=== PATIENT | male | born 1940 | race Caucasian/White ===

== ENCOUNTER 2017-06-02 10:03 | Day surgery (SDC) | payer OTHER ==
[2017-05-29 09:33] LABS: BASOPHILS % (AUTO) 0.5 % (0-1); EOSINOPHILS # (AUTO) 0.3 X10'3 (0-0.9); EOSINOPHILS % (AUTO) 4.1 % (0-6); HEMATOCRIT 40.4 % (42.0-52.0); HEMOGLOBIN 13.5 g/dl (14.0-17.9); LYMPHOCYTES # (AUTO) 1.5 X10'3 (1.1-4.8); MEAN CORPUSCULAR HEMOGLOBIN 31.4 PG (27.0-31.0); MEAN CORPUSCULAR HGB CONC 33.4 % (33.0-36.5); MEAN CORPUSCULAR VOLUME 94.1 FL (78-98); MEAN PLATELET VOLUME 10.2 FL (7.4-10.4); MONOCYTES # (AUTO) 0.7 X10'3 (0-0.9); MONOCYTES % (AUTO) 10.1 % (2-12); NEUTROPHILS # (AUTO) 4.7 X10'3 (1.8-7.7); NEUTROPHILS % (AUTO) 64.3 % (42-75); PLATELET COUNT 134 X10'3 (140-440); RED BLOOD COUNT 4.29 X10'6 (4.70-6.10); RED CELL DISTRIBUTION WIDTH 13.8 % (11.5-14.5); WHITE BLOOD COUNT 7.3 X10'3 (4.5-11.0)
[2017-05-29 09:44] LABS: INR 1.1 INR; PARTIAL THROMBOPLASTIN TIME 32 SECONDS (22-32); PROTHROMBIN TIME 11.4 SECONDS (9.0-12.0)
[2017-05-29 09:59] LABS: ALBUMIN 3.6 G/DL (3.4-5.0); ANION GAP 3 (8-16); BLOOD UREA NITROGEN 30 MG/DL (7-18); CALCIUM 9.1 MG/DL (8.5-10.1); CHLORIDE 105 MMOL/L (99-107); CHOL/HDL RATIO 3.3 (0.00-4.99); CHOLESTEROL 127 MG/DL (0-200); CREATININE 1.76 MG/DL (0.60-1.10); GLUCOSE 135 MG/DL (70-104); HDL CHOLESTEROL 39 MG/DL (35-60); LDL CHOLESTEROL 73 MG/DL (50-100); POTASSIUM 4.7 MMOL/L (3.5-5.1); SODIUM 140 MMOL/L (135-145); TRIGLYCERIDES 178 MG/DL (20-135); eGFR 38 ML/MIN
[~2017-06-02] VITALS: Ht 180.3 cm; Wt 112.9 kg
[2017-06-02] VITALS (12 sets, daily range): BP systolic 120–142; BP diastolic 54–88
[~2017-06-02 10:03] MED LIST: ACET650T2 PO; AMIO200T57 PO; ATOR20TA PO; DONE5TAB3 PO; DULO-31 PO; FLO0.4C PO; HYDR-3972 PO; MEMA5TAB PO; NITR0.4T48 SL; OMEG1CAP PO; PREG50CA PO; RANO500T3 PO; SITA50TA7 PO
[2017-06-02] MEDS ORDERED: LIDOcaine 1% (10mg/ml) 2ml vial ONE (10:15)
[2017-06-02] MEDS ORDERED: ASPI81TA52 PO (10:23)
[2017-06-02] MEDS ORDERED: LISI-600 PO (10:23)
[2017-06-02] MEDS ORDERED: MULT-933 PO (10:24)
[2017-06-02] MEDS ORDERED: APIX5TAB3 PO (10:24)
[2017-06-02] MEDS ORDERED: diphenhydrAMINE 25mg capsule PO PRN (10:25)
[2017-06-02] MEDS ORDERED: METO50TA17 PO (10:25)
[2017-06-02] MEDS ORDERED: LORazepam 0.5 MG tablet PO PRN (10:25)
[2017-06-02] MEDS ORDERED: FISH12002 PO (11:14)
[2017-06-02] MEDS ORDERED: BUPR300T54 PO (11:14)
[2017-06-02] MEDS: normal saline 1000ml 1,000 ML IV SCH ×2 (11:38→19:50)
[2017-06-02] MEDS ORDERED: iohexol 350MG/ML 100ml bottle IV ONE (16:40)
[2017-06-02] MEDS ORDERED: iohexol 350 MG/ML 50ML vial IV ONE (17:14)
[2017-06-02] MEDS ORDERED: ondansetron/PF 4mg/2ml inj IV PRN (18:05)
[2017-06-02] MEDS ORDERED: normal saline 1000ml 1,000 ML IV SCH (18:05)
[2017-06-02] MEDS ORDERED: HYDROcodone/acetaminophen 5mg/325mg tablet PO PRN (18:05)
[2017-06-02] MEDS ORDERED: OXAZEpam 15mg capsule PO PRN (18:10)
[2017-06-02] MEDS ORDERED: HYDROcodone/acetaminophen 10/325mg tab PO PRN (18:10)
[2017-06-02] MEDS ORDERED: nitroGLYCERIN 0.4mg SUBLingual tab SL PRN (18:10)
[2017-06-02] MEDS ORDERED: proCHLORperazine 10 MG/2 ml inj IV PRN (18:10)
[2017-06-02] MEDS ORDERED: apixaban 5mg tablet PO SCH (20:00)
[2017-06-02] MEDS ORDERED: buPROPion SR 150mg tablet PO SCH (20:00)
[2017-06-02] MEDS ORDERED: OMEGA-3/DHA/EPA/FISH OIL 1 EACH CAPSULE.DR PO SCH (20:00)
[2017-06-02] MEDS ORDERED: metoprolol tartrate 50mg tablet PO SCH (20:00)
[2017-06-02] MEDS ORDERED: memantine 5mg tablet PO SCH (20:00)
[2017-06-03] MEDS ORDERED: multivitamins, therapeutics tablet PO SCH (08:00)
[2017-06-03] MEDS ORDERED: atorvastatin 20mg tablet PO SCH (08:00)
[2017-06-03] MEDS ORDERED: lisinopril 20mg tablet PO SCH (08:00)
[2017-06-03] MEDS ORDERED: aspirin 81mg tablet.DR PO SCH (08:00)
[2017-06-03] MEDS ORDERED: donepezil 5mg tablet PO SCH (08:00)
[2017-06-03] MEDS ORDERED: duloxetine 30mg CAPSULE.DR PO SCH (08:00)
== END 2017-06-02 23:10 | disposition home or self-care (01) ==
LOC: SSTAY O 10:03 → PCU 3S 18:01 → SSTAY O 23:10
PROVIDERS: ATTEND Internal Medicine Interventional Cardiology
DX: I25.10 Atherosclerotic heart disease of native coronary artery without angina pectoris (principal); Z95.1 Presence of aortocoronary bypass graft; I13.0 Hypertensive heart and chronic kidney disease with heart failure and stage 1 through stage 4 chronic kidney disease, or unspecified chronic kidney disease; N18.3 Chronic kidney disease, stage 3 (moderate); I50.9 Heart failure, unspecified; I48.91 Unspecified atrial fibrillation; I42.9 Cardiomyopathy, unspecified
CPT/HCPCS: 36415; 80048; 80061; 82948; 85025; 85610; 85730; 93005; 93459; 93567; A6257; C1769; J1644; J3490; J7030; Q9967; A4620

== ENCOUNTER 2019-04-19 20:17 | Emergency (ER) | payer MEDICARE, BC ==
[~2019-04-19] VITALS: Ht 180.3 cm; Wt 111.4 kg
[~2019-04-19 20:17] MED LIST changes: -ACET650T2 PO; -AMIO200T57 PO; +APIX5TAB3 PO; +ASPI81TA52 PO; +BUPR300T54 PO; -FLO0.4C PO; -HYDR-3972 PO; +LISI-600 PO; +METO50TA17 PO; +MULT-933 PO; -OMEG1CAP PO; -PREG50CA PO; -RANO500T3 PO
--- NOTE | 2019-04-19 20:45 | NUR ---
Poison control contacted. They recommend symptomatic treatment for GI upset and headache. That state the amount the patient consumed will not likeley cause any harm to the patient. He recommends EKG if the patient is having any cardiac symptioms. He states the patient does not need observation and can be safely discharged with instructions to return for worsening symptoms. Spoke to Jesus from poison control.
[2019-04-19 21:55] VITALS: BP 155/65
== END 2019-04-19 21:57 | disposition home or self-care (01) ==
LOC: ER 20:19
DX: R10.13 Epigastric pain (principal); R51 Headache; T49.3X5A Adverse effect of emollients, demulcents and protectants, initial encounter; I48.91 Unspecified atrial fibrillation; I25.10 Atherosclerotic heart disease of native coronary artery without angina pectoris; I10 Essential (primary) hypertension; E11.9 Type 2 diabetes mellitus without complications; F32.9 Major depressive disorder, single episode, unspecified; Z79.899 Other long term (current) drug therapy; Z79.82 Long term (current) use of aspirin; Z95.1 Presence of aortocoronary bypass graft; Y92.89 Other specified places as the place of occurrence of the external cause
CPT/HCPCS: 93005; 99283

== ENCOUNTER 2022-05-13 09:47 | Emergency (ER) | payer MEDICARE, BC ==
[~2022-05-13] VITALS: Ht 180.3 cm; Wt 110.0 kg
[~2022-05-13 09:47] MED LIST changes: -ASPI81TA52 PO; -ATOR20TA PO; -BUPR300T54 PO; -DONE5TAB3 PO; -DULO-31 PO; -LISI-600 PO; -MEMA5TAB PO; -MULT-933 PO; +PREG100C55 PO; +SITA100T15 PO; -SITA50TA7 PO
[2022-05-13 10:15] VITALS: BP 114/54
[2022-05-13] MEDS ORDERED: PRED20TA PO (13:07)
[2022-05-13] MEDS ORDERED: ALBU6.7H14 INH (13:07)
[2022-05-13] MEDS ORDERED: AMOX-117 PO (13:07)
== END 2022-05-13 13:23 | disposition home or self-care (01) ==
LOC: ER 09:48
DX: J40 Bronchitis, not specified as acute or chronic (principal); Z20.822 Contact with and (suspected) exposure to COVID-19; I10 Essential (primary) hypertension; E11.9 Type 2 diabetes mellitus without complications
CPT/HCPCS: 71045; 87635; 99284; C9803

== ENCOUNTER 2022-05-17 09:12 | Emergency (ER) | payer MEDICARE, BC ==
[~2022-05-17] VITALS: Ht 185.4 cm; Wt 112.3 kg
[~2022-05-17 09:12] MED LIST changes: +ALBU6.7H14 INH; +AMOX-117 PO; +PRED20TA PO
[2022-05-17 09:29] VITALS: BP 93/53
[2022-05-17 09:35] LABS: BASOPHILS % (AUTO) 0.2 % (0-1); EOSINOPHILS % (AUTO) 0.1 % (0-6); HEMATOCRIT 39.3 % (42.0-52.0); HEMOGLOBIN 13.1 g/dl (14.0-17.9); LYMPHOCYTES # (AUTO) 0.9 X10'3 (1.1-4.8); LYMPHOCYTES % (AUTO) 16.4 % (21-51); MEAN CORPUSCULAR HEMOGLOBIN 30.5 PG (27.0-31.0); MEAN CORPUSCULAR HGB CONC 33.2 g/dL (33.0-36.5); MEAN CORPUSCULAR VOLUME 91.9 FL (78-98); MONOCYTES # (AUTO) 0.4 X10'3 (0-0.9); NEUTROPHILS # (AUTO) 3.9 X10'3 (1.8-7.7); NEUTROPHILS % (AUTO) 75.3 % (42-75); PLATELET COUNT 130 X10'3 (140-440); RED BLOOD COUNT 4.28 X10'6 (4.70-6.10); RED CELL DISTRIBUTION WIDTH 13.9 % (11.5-14.5); WHITE BLOOD COUNT 5.2 X10'3 (4.5-11.0)
[2022-05-17 10:01] LABS: ALANINE AMINOTRANSFERASE 61 U/L (12-78); ALBUMIN 3.2 G/DL (3.4-5.0); ALKALINE PHOSPHATASE 65 IU/L (46-116); ANION GAP 8 (8-16); ASPARTATE AMINO TRANSFERASE 33 U/L (10-37); BILIRUBIN,TOTAL 0.8 MG/DL (0.1-1.0); BLOOD UREA NITROGEN 18 MG/DL (7-18); BUN/CREATININE RATIO 11.5 (5.4-32.0); CALCIUM 8.6 MG/DL (8.5-10.1); CHLORIDE 104 MMOL/L (99-107); CREATININE 1.56 MG/DL (0.60-1.10); GLUCOSE 157 MG/DL (70-104); POTASSIUM 4.4 MMOL/L (3.5-5.1); SODIUM 139 MMOL/L (135-145); TOTAL CARBON DIOXIDE 26.7 MMOL/L (24-32); TOTAL PROTEIN 6.5 G/DL (6.4-8.2); eGFR 43 ML/MIN
[2022-05-17] MEDS ORDERED: acetaminophen 325mg tablet PO ONE (10:35)
[2022-05-17 15:02] LABS: CLARITY,URINE SLIGHTLY CLOUDY (Clear); COLOR,URINE YELLOW (Yellow); GLUCOSE, URINE NEGATIVE (Neg); KETONES,URINE NEGATIVE (Neg); LEUKOCYTE ESTERASE ,URINE NEGATIVE (Neg); NITRITES, URINE NEGATIVE (Neg); OCCULT BLOOD,URINE NEGATIVE (Neg); PH,URINE 6.5 (4.8-8.0); PROTEIN,URINE TRACE mg/dl (Neg); UROBILINOGEN,URINE 0.2 E.U/dL (0.2-1.0)
[2022-05-17 15:06] LABS: UA COLLECTION TYPE CLN CATCH MIDSTREAM
[2022-05-17 15:25] LABS: SQUAMOUS EPITHELIAL CELL,UR FEW /LPF (FEW)
[2022-05-17 15:26] LABS: MUCUS STRANDS FEW /LPF (Neg)
[2022-05-17 15:27] LABS: HYALINE CASTS 0-3 /LPF (NEGATIVE)
[2022-05-17 15:28] LABS: BACTERIA,URINE FEW /HPF (Neg); RBC,URINE 0-2 /HPF (0-2); WBC,URINE 0-4 /HPF (0-4)
== END 2022-05-17 16:00 | disposition home or self-care (01) ==
LOC: ER 09:13
DX: S00.81XA Abrasion of other part of head, initial encounter (principal); J40 Bronchitis, not specified as acute or chronic; I11.9 Hypertensive heart disease without heart failure; E11.9 Type 2 diabetes mellitus without complications; F32.A Depression, unspecified; Z79.1 Long term (current) use of non-steroidal anti-inflammatories (NSAID); W18.39XA Other fall on same level, initial encounter; Y93.89 Activity, other specified; Y92.89 Other specified places as the place of occurrence of the external cause; Y99.8 Other external cause status; Z79.899 Other long term (current) drug therapy
CPT/HCPCS: 36415; 70450; 72125; 80053; 81001; 83735; 83880; 84484; 85025; 93005; 99285

== ENCOUNTER 2022-06-17 09:56 | Emergency (ER) | payer BC, MEDICARE, OTHER ==
[~2022-06-17] VITALS: Ht 180.3 cm; Wt 109.0 kg
[~2022-06-17 09:56] MED LIST changes: -AMOX-117 PO; -PRED20TA PO
[2022-06-17 10:53] LABS: BASOPHILS % (AUTO) 0.6 % (0-1); EOSINOPHILS # (AUTO) 0.2 X10'3 (0-0.9); EOSINOPHILS % (AUTO) 1.8 % (0-6); HEMATOCRIT 38.6 % (42.0-52.0); HEMOGLOBIN 12.5 g/dl (14.0-17.9); LYMPHOCYTES % (AUTO) 11.3 % (21-51); MEAN CORPUSCULAR HEMOGLOBIN 29.8 PG (27.0-31.0); MEAN CORPUSCULAR HGB CONC 32.4 g/dL (33.0-36.5); MEAN CORPUSCULAR VOLUME 92.1 FL (78-98); MONOCYTES # (AUTO) 1.3 X10'3 (0-0.9); MONOCYTES % (AUTO) 14.2 % (2-12); NEUTROPHILS # (AUTO) 6.4 X10'3 (1.8-7.7); NEUTROPHILS % (AUTO) 72.1 % (42-75); PLATELET COUNT 153 X10'3 (140-440); RED BLOOD COUNT 4.19 X10'6 (4.70-6.10); RED CELL DISTRIBUTION WIDTH 14.1 % (11.5-14.5); WHITE BLOOD COUNT 8.8 X10'3 (4.5-11.0)
[2022-06-17 11:05] LABS: ALANINE AMINOTRANSFERASE 26 U/L (12-78); ALBUMIN 3.3 G/DL (3.4-5.0); ALBUMIN/GLOBULIN RATIO 0.9 (1.1-1.5); ALKALINE PHOSPHATASE 69 IU/L (46-116); ANION GAP 4 (8-16); ASPARTATE AMINO TRANSFERASE 14 U/L (10-37); BILIRUBIN,TOTAL 0.9 MG/DL (0.1-1.0); BLOOD UREA NITROGEN 16 MG/DL (7-18); CALCIUM 8.8 MG/DL (8.5-10.1); CHLORIDE 103 MMOL/L (99-107); CREATININE 1.46 MG/DL (0.60-1.10); GLUCOSE 146 MG/DL (70-104); POTASSIUM 4.3 MMOL/L (3.5-5.1); SODIUM 136 MMOL/L (135-145); TOTAL CARBON DIOXIDE 28.9 MMOL/L (24-32); TOTAL PROTEIN 6.8 G/DL (6.4-8.2); eGFR 46 ML/MIN
[2022-06-17 13:14] VITALS: BP 149/68
[2022-06-17] MEDS ORDERED: ALBU6.7H14 INH (13:22)
[2022-06-17] MEDS ORDERED: PRED20TA PO (13:22)
[2022-06-17] MEDS ORDERED: BENZ-38 PO (13:22)
== END 2022-06-17 13:16 | disposition home or self-care (01) ==
LOC: ER 09:57
DX: R91.8 Other nonspecific abnormal finding of lung field (principal); R06.02 Shortness of breath; R05.3 Chronic cough; R53.83 Other fatigue; I48.91 Unspecified atrial fibrillation; I25.10 Atherosclerotic heart disease of native coronary artery without angina pectoris; I10 Essential (primary) hypertension; E11.9 Type 2 diabetes mellitus without complications; F32.A Depression, unspecified; Z85.9 Personal history of malignant neoplasm, unspecified; Z98.890 Other specified postprocedural states; Z79.899 Other long term (current) drug therapy
CPT/HCPCS: 36415; 71045; 71250; 80053; 83880; 84484; 85025; 93005; 99285

== ENCOUNTER 2022-07-11 08:03 | Day surgery (SDC) | payer MEDICARE, OTHER ==
[~2022-07-11] VITALS: Ht 180.3 cm; Wt 110.4 kg
[2022-07-11] VITALS (14 sets, daily range): BP systolic 116–143; BP diastolic 39–94
[~2022-07-11 08:03] MED LIST changes: +BENZ-38 PO
[2022-07-11] MEDS ORDERED: normal saline 1000ml 1,000 ML IV PRN (08:25)
[2022-07-11 08:45] LABS: BASOPHILS # (AUTO) 0.1 X10'3 (0-0.2); BASOPHILS % (AUTO) 0.8 % (0-1); EOSINOPHILS # (AUTO) 0.2 X10'3 (0-0.9); EOSINOPHILS % (AUTO) 3.4 % (0-6); HEMATOCRIT 39.2 % (42.0-52.0); HEMOGLOBIN 13.1 g/dl (14.0-17.9); LYMPHOCYTES # (AUTO) 1.2 X10'3 (1.1-4.8); LYMPHOCYTES % (AUTO) 17.4 % (21-51); MEAN CORPUSCULAR HEMOGLOBIN 30.6 PG (27.0-31.0); MEAN CORPUSCULAR HGB CONC 33.4 g/dL (33.0-36.5); MEAN CORPUSCULAR VOLUME 91.5 FL (78-98); MEAN PLATELET VOLUME 9.2 FL (7.4-10.4); MONOCYTES # (AUTO) 0.6 X10'3 (0-0.9); MONOCYTES % (AUTO) 9.1 % (2-12); NEUTROPHILS # (AUTO) 4.7 X10'3 (1.8-7.7); NEUTROPHILS % (AUTO) 69.3 % (42-75); PLATELET COUNT 204 X10'3 (140-440); RED BLOOD COUNT 4.28 X10'6 (4.70-6.10); RED CELL DISTRIBUTION WIDTH 14.1 % (11.5-14.5); WHITE BLOOD COUNT 6.8 X10'3 (4.5-11.0)
[2022-07-11] MEDS ORDERED: ATOR40TA71 PO (09:00)
[2022-07-11] MEDS ORDERED: METF-436 PO (09:00)
[2022-07-11] MEDS ORDERED: METO50TA17 PO (09:00)
[2022-07-11] MEDS ORDERED: ICOS1CAP2 PO (09:00)
[2022-07-11] MEDS ORDERED: GLIP5TAB13 PO (09:00)
[2022-07-11] MEDS ORDERED: midazolam 1 mg/ML 2ml injection ONE (09:50)
[2022-07-11] MEDS ORDERED: LIDOcaine 1% (10mg/ml) 2ml vial ONE (09:50)
[2022-07-11] MEDS ORDERED: fentaNYL/PF 50MCG/1 ML 2ML syringe ONE (09:51)
--- NOTE | 2022-07-11 14:05 | NUR ---
CXR complete. Called Dr. Prabhakar to read the CXR to clear the patient to go home.
--- NOTE | 2022-07-11 15:00 | NUR ---
Dr. Prabhakar called. CXR looks good, patient may go home.
== END 2022-07-11 15:05 | disposition home or self-care (01) ==
LOC: SSTAY O 08:03
PROVIDERS: ATTEND Radiology Vascular & Interventional Radiology
DX: R91.1 Solitary pulmonary nodule (principal); I48.91 Unspecified atrial fibrillation; I25.10 Atherosclerotic heart disease of native coronary artery without angina pectoris; I10 Essential (primary) hypertension; N40.0 Benign prostatic hyperplasia without lower urinary tract symptoms; E11.9 Type 2 diabetes mellitus without complications; F32.A Depression, unspecified; Z79.01 Long term (current) use of anticoagulants; Z85.528 Personal history of other malignant neoplasm of kidney; Z96.652 Presence of left artificial knee joint; Z96.611 Presence of right artificial shoulder joint; Z95.1 Presence of aortocoronary bypass graft; Z79.84 Long term (current) use of oral hypoglycemic drugs; Z79.899 Other long term (current) drug therapy; Z82.3 Family history of stroke; Z83.3 Family history of diabetes mellitus
CPT/HCPCS: 32408; 36415; 71045; 82948; 85025; 85610; 88305; 88341; 88342; 88360; J2250; J3010; J3490; J7030; 77012; 88173; A4421; A4615; A6258; C1769

== ENCOUNTER 2023-02-20 17:36 | Emergency (ER) | payer OTHER ==
[~2023-02-20] VITALS: Ht 180.3 cm; Wt 105.0 kg
[~2023-02-20 17:36] MED LIST changes: -ALBU6.7H14 INH; +ATOR40TA71 PO; -BENZ-38 PO; +GLIP5TAB13 PO; +ICOS1CAP2 PO; +METF-436 PO; -NITR0.4T48 SL; -PREG100C55 PO; +PREG100C56 PO
[2023-02-20] MEDS ORDERED: guaiFENesin 200 MG/10 ML oral syrup UD cup PO PRN (18:40)
[2023-02-20] MEDS ORDERED: ipratropium/albuterol 3ml nebule NEB PRN (18:40)
[2023-02-20] MEDS ORDERED: benzonatate 100mg capsule PO ONE (18:40)
[2023-02-20] MEDS ORDERED: DEXT15SY PO (18:59)
[2023-02-20] MEDS ORDERED: BENZ-38 PO (18:59)
[2023-02-20 19:35] VITALS: PULSE 65; RESP 18; O2SAT 95
[2023-02-20 19:43] VITALS: PULSE 65; RESP 18; O2SAT 99
--- NOTE | 2023-02-20 20:00 | NUR ---
REVIEWED ASSESSMENT BY [facility]X CONSULTANT AND AGREE WITH ASSESSMENT.
[2023-02-20 20:11] VITALS: BP 133/65; PULSE 66; RESP 16; TEMP 98.7; O2SAT 93
== END 2023-02-20 21:48 | disposition home or self-care (01) ==
LOC: ER 17:36
DX: R05.9 Cough, unspecified (principal); Z20.822 Contact with and (suspected) exposure to COVID-19; I10 Essential (primary) hypertension; E11.9 Type 2 diabetes mellitus without complications; Z79.899 Other long term (current) drug therapy
CPT/HCPCS: 36415; 71045; 87502; 87503; 87811; 94640; 94760; 99284

== ENCOUNTER 2023-02-28 05:19 | Day surgery (SDC) | payer MEDICARE, OTHER ==
[2023-02-26 11:42] LABS: BASOPHILS # (AUTO) 0.1 X10'3 (0-0.2); BASOPHILS % (AUTO) 1.1 % (0-1); EOSINOPHILS # (AUTO) 0.2 X10'3 (0-0.9); EOSINOPHILS % (AUTO) 3.2 % (0-6); LYMPHOCYTES # (AUTO) 1.1 X10'3 (1.1-4.8); LYMPHOCYTES % (AUTO) 15.1 % (21-51); MEAN CORPUSCULAR HEMOGLOBIN 30.8 PG (27.0-31.0); MEAN CORPUSCULAR HGB CONC 33.1 g/dL (33.0-36.5); MEAN PLATELET VOLUME 9.7 FL (7.4-10.4); MONOCYTES # (AUTO) 0.8 X10'3 (0-0.9); MONOCYTES % (AUTO) 10.2 % (2-12); NEUTROPHILS # (AUTO) 5.2 X10'3 (1.8-7.7); NEUTROPHILS % (AUTO) 70.4 % (42-75); PRE OP HEMATOCRIT 42.7 % (42.0-52.0); PRE OP HEMOGLOBIN 14.1 g/dL (14.0-17.9); PRE OP PLATELET COUNT 181 X10'3 (140-440); PRE OP WHITE BLOOD COUNT 7.4 10'3 (4.8-10.8); RED BLOOD COUNT 4.59 X10'6 (4.70-6.10); RED CELL DISTRIBUTION WIDTH 13.8 % (11.5-14.5)
[2023-02-26 11:54] LABS: ALBUMIN 3.5 G/DL (3.4-5.0); ALKALINE PHOSPHATASE 85 IU/L (46-116); BLOOD UREA NITROGEN 18 MG/DL (7-18); BUN/CREATININE RATIO 11.6 (10.0-20.0); CALCIUM 9.4 MG/DL (8.5-10.1); CHLORIDE 103 MMOL/L (99-107); CREATININE 1.55 MG/DL (0.60-1.10); PRE OP ALT 39 U/L (30-65); PRE OP ANION GAP 8 (8-16); PRE OP AST 26 U/L (10-37); PRE OP BILIRUB, TOTAL 0.7 MG/DL (0.0-1.0); PRE OP GLUCOSE 100 MG/DL (70-104); PRE OP POTASSIUM 4.4 MMOL/L (3.4-5.1); PRE OP SODIUM 139 MMOL/L (135-145); TOTAL CARBON DIOXIDE 28.5 MMOL/L (24-32); TOTAL PROTEIN 7.1 G/DL (6.4-8.2); eGFR 43 ML/MIN
[~2023-02-28] VITALS: Ht 180.3 cm; Wt 108.2 kg
[2023-02-28] VITALS (12 sets, daily range): BP systolic 133–167; BP diastolic 68–87; PULSE 60–63; RESP 9–16; TEMP 97.4; O2SAT 60–99
[~2023-02-28 05:19] MED LIST changes: +BENZ-38 PO; +DEXT15SY PO; -METF-436 PO; -PREG100C56 PO; +ringers solution, lacted 1,000 ML IV SCH
[2023-02-28] MEDS ORDERED: famotidine 20mg tablet PO ONE (05:30)
[2023-02-28] MEDS ORDERED: DOCUMENT DATE & TIME OF BETA-BLOCKER PO ONE (05:30)
[2023-02-28] MEDS ORDERED: LIDOCAINE 4% (40MG/ML) topical solution 50ml **BRONCH ONLY ONE (07:23)
[2023-02-28] MEDS ORDERED: epiNEPHrine 1 MG/ML 1 ml ampule **BRONCH ONLY ONE (07:23)
[2023-02-28] MEDS ORDERED: HYDROmorphone/PF 0.2 MG/ML SYRINGE IV PRN ×2 (07:30)
[2023-02-28] MEDS ORDERED: ondansetron/PF 4mg/2ml inj IV PRN (07:30)
[2023-02-28] MEDS ORDERED: ringers solution, lacted 1,000 ML IV SCH (07:30)
[2023-02-28] MEDS ORDERED: morphine 2 MG/ML inj. syringe IV PRN (07:30)
[2023-02-28] MEDS ORDERED: fentaNYL/PF 50MCG/1 ML 2ML syringe ONE (07:31)
[2023-02-28] MEDS ORDERED: sevoflurane 250ml liquid IH ONE (07:40)
[2023-02-28] MEDS ORDERED: dexamethasone sod phosphate 4mg/ml inj. ONE (08:39)
[2023-02-28] MEDS ORDERED: LIDOcaine 2% (20mg/ml) 5ml vial ONE (08:39)
[2023-02-28] MEDS ORDERED: rocuronium 10mg/ml inj IV ONE (08:39)
[2023-02-28] MEDS ORDERED: sugammadex 200mg/2ml injection IV ONE (08:39)
[2023-02-28] MEDS ORDERED: ondansetron/PF 4mg/2ml inj ONE (08:39)
[2023-02-28] MEDS ORDERED: propofol inj 20 ML IV ONE (08:39)
[2023-02-28] MEDS ORDERED: phenylephrine 10mg/ml inj. -priapism dosing ONE (08:39)
--- NOTE | 2023-02-28 09:10 | NUR ---
Received from OR via JACKIE, accompanied by Anesthesiologist NORBERT and report given by Anesthesiologist. PT PRESENTS ON 10L VIA MASK. PT IS AROUSABLE TO VOICE. MD SARAH BETH IN ROOM AND HE ADMINISTERED 50MCG FENTANYL FOR BP/PAIN. NO S/S OF DISTRESS. ORDERS REC'D FOR CXR AND RT TX. NO S/S OF BLEEDING. SCD'S ON. LR RUNNING THRU PIV
[2023-02-28] MEDS ORDERED: ipratropium/albuterol 3ml nebule NEB STA (09:16)
--- NOTE | 2023-02-28 10:50 | NUR ---
PT STABLE FOR D/C PER MD ORDERS. ALL D/C PPWK WAS REV'D WITH PATIENT AND PATIENT , MARGOT. ALL QUESTIONS, COMMENTS, AND CONCERNS WERE ANSWERED AT THIS TIME. PT IS NEUROLOGICALLY INTACT AND WAS ABLE TO DRESS HIMSELF WITH MINIMAL ASSISTANCE. PT WAS ABLE TO TRANSFER HIMSELF TO W/C WITHOUT ASSISTANCE. PT HAS A STRONG PRODUCTIVE COUGH. ADVISED OF POSSIBLE BLOOD TINGED SPUTUM BEING A POSSIBILITY AFTER THIS PROCEDURE. ADVISED THAT IF THERE ARE ANY CONCERNS TO PLEASE CONTACT THE DR. THEY VERBALIZED UNDERSTANDING. PT WAS WHEELED OUT TO PRIVATE VEHICLE AND TRANSFERRED INTO VEHICLE WITHOUT INCIDENT. ALL PERSONAL BELONGINGS WITH PATIENT INCLUDING BILATERAL HEARING AIDS AND GLASSES.
== END 2023-02-28 10:50 | disposition home or self-care (01) ==
LOC: PAS 05:19
PROVIDERS: ATTEND Internal Medicine Critical Care Medicine
DX: R22.2 Localized swelling, mass and lump, trunk (principal); C34.11 Malignant neoplasm of upper lobe, right bronchus or lung; E11.9 Type 2 diabetes mellitus without complications; E66.9 Obesity, unspecified; G47.33 Obstructive sleep apnea (adult) (pediatric); M19.90 Unspecified osteoarthritis, unspecified site; Z85.528 Personal history of other malignant neoplasm of kidney; Z87.891 Personal history of nicotine dependence; Z79.01 Long term (current) use of anticoagulants; Z79.84 Long term (current) use of oral hypoglycemic drugs; Z79.899 Other long term (current) drug therapy; Z95.0 Presence of cardiac pacemaker; Z95.1 Presence of aortocoronary bypass graft; Z98.890 Other specified postprocedural states; Z68.33 Body mass index [BMI] 33.0-33.9, adult
CPT/HCPCS: 31623; 31624; 31628; 31629; 31653; 36415; 71045; 71046; 71250; 80053; 82948; 85025; 87070; 88341; 93005; 94640; 94760; J1100; J2370; J2405; J2704; J3010; J3490; J7120; Z7506; Z7508; Z7512; 31622; 31625; 31627; 31635; 31645; 31654; 88108; 88173; 88305; 88342; A4615; A4618; A5200; J0171

== ENCOUNTER 2023-03-09 17:31 | Emergency (ER) | payer OTHER ==
[~2023-03-09] VITALS: Ht 180.3 cm; Wt 102.3 kg
[~2023-03-09 17:31] MED LIST changes: -ringers solution, lacted 1,000 ML IV SCH
[2023-03-09 17:39] VITALS: BP 136/53; PULSE 60; RESP 20; TEMP 96.6; O2SAT 94
[2023-03-09] MEDS ORDERED: CEFD300C3 PO (19:37)
[2023-03-09] MEDS ORDERED: CefTRIAXone 1000mg IM Kit (w/lidocaine diluent) IM ONE (19:50)
== END 2023-03-09 20:31 | disposition home or self-care (01) ==
LOC: ER 17:31
DX: J20.9 Acute bronchitis, unspecified (principal); I10 Essential (primary) hypertension; E11.9 Type 2 diabetes mellitus without complications; Z79.899 Other long term (current) drug therapy
CPT/HCPCS: 96372; 99284; J0696

== ENCOUNTER 2023-03-11 09:29 | Emergency (ER) | payer OTHER ==
[~2023-03-11] VITALS: Ht 180.3 cm; Wt 105.2 kg
[~2023-03-11 09:29] MED LIST changes: +CEFD300C3 PO
[2023-03-11 10:06] LABS: BASOPHILS % (AUTO) 0.3 % (0-1); EOSINOPHILS # (AUTO) 0.2 X10'3 (0-0.9); EOSINOPHILS % (AUTO) 1.5 % (0-6); HEMATOCRIT 39.3 % (42.0-52.0); LYMPHOCYTES # (AUTO) 0.8 X10'3 (1.1-4.8); LYMPHOCYTES % (AUTO) 7.3 % (21-51); MEAN CORPUSCULAR HEMOGLOBIN 30.7 PG (27.0-31.0); MEAN CORPUSCULAR HGB CONC 33.2 g/dL (33.0-36.5); MEAN CORPUSCULAR VOLUME 92.6 FL (78-98); MEAN PLATELET VOLUME 9.2 FL (7.4-10.4); MONOCYTES # (AUTO) 1.2 X10'3 (0-0.9); MONOCYTES % (AUTO) 10.7 % (2-12); NEUTROPHILS # (AUTO) 9.1 X10'3 (1.8-7.7); NEUTROPHILS % (AUTO) 80.2 % (42-75); PLATELET COUNT 210 X10'3 (140-440); RED BLOOD COUNT 4.24 X10'6 (4.70-6.10); WHITE BLOOD COUNT 11.3 X10'3 (4.5-11.0)
[2023-03-11 10:29] LABS: ALANINE AMINOTRANSFERASE 36 U/L (12-78); ALBUMIN 2.8 G/DL (3.4-5.0); ALBUMIN/GLOBULIN RATIO 0.6 (1.1-1.5); ALKALINE PHOSPHATASE 92 IU/L (46-116); ANION GAP 8 (8-16); BILIRUBIN,TOTAL 0.7 MG/DL (0.1-1.0); BLOOD UREA NITROGEN 14 MG/DL (7-18); BUN/CREATININE RATIO 9.6 (10.0-20.0); CALCIUM 9.3 MG/DL (8.5-10.1); CHLORIDE 101 MMOL/L (99-107); CREATININE 1.46 MG/DL (0.60-1.10); GLUCOSE 108 MG/DL (70-104); SODIUM 135 MMOL/L (135-145); TOTAL CARBON DIOXIDE 25.8 MMOL/L (24-32); TOTAL PROTEIN 7.3 G/DL (6.4-8.2); eCRCL 40 ML/MIN; eGFR 46 ML/MIN
[2023-03-11 10:35] LABS: PRO BRAIN NATRIURETIC PEPTIDE 477 PG/ML (0-450)
[2023-03-11 10:41] LABS: ASPARTATE AMINO TRANSFERASE 39 U/L (10-37)
[2023-03-11 11:27] VITALS: BP 120/64; PULSE 60; RESP 16; TEMP 98.2; O2SAT 94
[2023-03-11] MEDS ORDERED: ALBU18HF2 INH (11:34)
[2023-03-11] MEDS ORDERED: INHA1EAC9 INH (11:34)
[2023-03-11] MEDS ORDERED: BENZ-38 PO (11:34)
[2023-03-11] MEDS ORDERED: benzonatate 100mg capsule PO ONE (11:35)
== END 2023-03-11 12:10 | disposition home or self-care (01) ==
LOC: ER 09:29
DX: R05.9 Cough, unspecified (principal); Z20.822 Contact with and (suspected) exposure to COVID-19; R91.8 Other nonspecific abnormal finding of lung field
CPT/HCPCS: 36415; 71046; 80053; 83605; 83880; 85025; 87040; 87502; 87503; 87811; 93005; 99285

== ENCOUNTER 2023-12-15 08:56 | Day surgery (SDC) | payer OTHER ==
[~2023-12-15] VITALS: Ht 180.3 cm; Wt 106.0 kg
[~2023-12-15 08:56] MED LIST changes: +AXIT1TAB; -BENZ-38 PO; -CEFD300C3 PO; -DEXT15SY PO; -GLIP5TAB13 PO; +GLIP5TAB23 PO
[2023-12-15 09:38] VITALS: BP 139/55; PULSE 60; RESP 16; TEMP 97.8
[2023-12-15] MEDS ORDERED: diphenhydrAMINE 50 mg/ml inj ONE (11:29)
[2023-12-15] MEDS ORDERED: MIDAZolam 1 MG/ML 5ML VIAL ONE (11:29)
[2023-12-15] MEDS ORDERED: fentaNYL/PF 50MCG/1 ML 2ML syringe ONE (11:29)
[2023-12-15 11:56] VITALS: BP 111/43; PULSE 60; RESP 11; O2SAT 96
[2023-12-15 12:06] VITALS: BP 106/47; PULSE 60; RESP 12; O2SAT 98
[2023-12-15 12:16] VITALS: BP 110/43; PULSE 60; RESP 16; O2SAT 96
[2023-12-15 12:26] VITALS: BP 111/45; PULSE 60; RESP 14; O2SAT 97
== END 2023-12-15 12:36 | disposition home or self-care (01) ==
LOC: GI LAB 08:56
PROVIDERS: ATTEND Internal Medicine Gastroenterology
DX: K92.1 Melena (principal); K57.30 Diverticulosis of large intestine without perforation or abscess without bleeding
CPT/HCPCS: 45378; 99152; J1200; J2250; J3010; J7030; Z7512; A4620

== ENCOUNTER 2024-10-29 06:36 | Day surgery (SDC) | payer OTHER ==
[2024-10-29] VITALS (19 sets, daily range): BP systolic 109–138; BP diastolic 47–77; PULSE 60; RESP 14–16; TEMP 97.6; O2SAT 98–100
[~2024-10-29] VITALS: Ht 180.3 cm; Wt 106.5 kg
[2024-10-29] MEDS ORDERED: [UNRECOGNIZED DRUG - OTHER] PO (07:10)
--- NOTE | 2024-10-29 08:31 | PROGRESS NOTE ---
H&P - Interval Note Providers to CC ~ Patient examined and condition: Yes Interval changes as follows: Paper short form H and P is done and in chart. R and L thyroid lobe nodules each TIRADs 4, Here for FNA of each. Risks benefits alt of this d/w pt and informed consent disclosed. BRUCE COLE MD Oct 29, 2024 08:31
--- NOTE | 2024-10-29 11:07 | RADIOLOGY REPORT ---
Bilateral thyroid nodules, FNA aspiration by ultrasound HISTORY: 'TIRAD4' single nodule R and L thyroid lobes, slightly larger on the left After explanation of the above procedure and informed consent, patient was prepped and draped in usual sterile fashion. Surgical timeout performed. Initially the right thyroid nodule which was hypoechoic was accessed the ultrasound probe. 3 separate 25-gauge FNA aspirations were made and slides were also prepared. There were no immediate complications. A total of 2 cc 1% lidocaine solution used for local anesthesia. Next attention directed at the left thyroid nodule which was also hypoechoic. This was accessed with ultrasound guidance. 3 separate 25-gauge FNA aspirations were made and slides were also prepared. There were no immediate complications. A total of 2 cc 1% lidocaine solution used for local anesthesia. Ultrasound imaging with color Doppler analysis post biopsy demonstrated no evidence of extravasation or hematoma formation bilaterally. IMPRESSION: FNA aspiration of a right and left thyroid nodule with each noted as TIRADS 4 category on ultrasound neck from [facility].
[2024-10-30] MEDS ORDERED: normal saline 1000ml 1,000 ML IV SCH (05:30)
== END 2024-10-29 09:20 | disposition home or self-care (01) ==
LOC: SSTAY O 06:36
PROVIDERS: ATTEND Registered Nurse
DX: E04.2 Nontoxic multinodular goiter (principal); C78.01 Secondary malignant neoplasm of right lung
CPT/HCPCS: 10005; 10006